=== PATIENT | female | born 1955 | race Caucasian/White ===

== ENCOUNTER → 2019-05-18 11:15 | Outpatient (CLI) | payer MEDICAID, SELFPAY | PROVIDERS: Family Provider Family Medicine; PCP Family Medicine; Referring Provider Family Medicine; Visit Provider Family Medicine | DX: R42 Dizziness and giddiness (principal); R55 Syncope and collapse | CPT/HCPCS: 93225; 93226 ==

== ENCOUNTER 2023-03-10 01:22 | Emergency (ER) | payer MEDICARE, SELFPAY ==
[2023-03-10 01:22] VITALS: BP 152/83; PULSE 81; RESP 16; O2SAT 98
[2023-03-10 01:23] VITALS: BP 168/91; PULSE 86; RESP 19; TEMP 36.3; O2SAT 98; BMI 35.7
--- NOTE | 2023-03-10 01:37 | CT_ITS ---
STUDY: CT ABDOMEN AND PELVIS WITHOUT CONTRAST REASON FOR EXAM: Female, 67 years old. Kidney Stone RADIATION DOSAGE (If Supplied By Facility): CTDIvol = ( 18.85 ) mGy, DLP = ( 975.09 ) mGycm TECHNIQUE: Transaxial images were obtained from the dome of the diaphragm to the symphysis pubis without oral contrast, and without intravenous contrast. Sagittal and coronal images were reconstructed. Individualized dose optimization techniques were used for this CT. COMPARISON: None. FINDINGS: Right middle lobe subpleural nodule measuring 6 mm. Left lower lobe subpleural nodule measuring 7.6 mm. Additional smaller nodules throughout the bilateral lower lobes noted. Mild cardiomegaly with coronary artery calcifications. There is decreased attenuation of the liver consistent with steatosis. There is high density material within the gallbladder which may indicate vicarious excretion of contrast from previous IV contrast examination, milk of calcium, sludge or tiny stones. Otherwise normal gallbladder and extrahepatic biliary system. Normal spleen. Normal pancreas. Normal bilateral adrenal glands. Normal right kidney. Mild left hydronephrosis and hydroureter with left ureter distended to the distal portion near the urinary bladder where there is a stone measuring 5.3 mm, just above the UV junction. Small hiatal hernia. The stomach is otherwise unremarkable. Normal small intestine. Increased fecal debris within the colon consistent with constipation. The appendix is visualized and appears normal. There is mild atherosclerotic calcification of the abdominal aorta, without a demonstrated aneurysm. Normal inferior vena cava. Normal retroperitoneum. Normal urinary bladder. On anteverted uterus with multiple calcifications, likely sequela of calcified uterine fibroids. Normal abdominal wall. There are diffuse degenerative changes of the visualized lumbar spine. Minimal anterolisthesis of L4 on L5 with no pars defect. Diffuse osteopenia. CT/Abdomen/Pelvis without Cont IMPRESSION: Mild left hydronephrosis due to a 5.3 mm stone just above the left UV junction. Constipation. Diffuse fatty liver. Multiple pulmonary nodules, recommend follow-up with CT chest for further characterization. Electronically Signed: Sandie Torres MD at 2:32 EST ,
--- NOTE | 2023-03-10 01:37 | ED.VIS.GI ---
HPI HPI - GI History of Present Illness Chief Complaint: Abd Pain Informant: patient Narrative Narrative: Brought in by EMS sudden left side abdominal pain waking her from sleep. Initial nausea. No vomiting. History of constipation however had bowel movement this morning. No urinary symptoms. Colonoscopy 2020. Denies abdominal surgeries in the past. No history of diverticulitis. Denies history of kidney stones however this runs in her family. Allergies to multiple antibiotics. Hypertension, diabetes, possible CKD history per patient. Prior similar symptoms: No PFSH PFSH Medical History (Updated 03/10/23 @ 02:[address] Benitez Inman, DO) Anemia Diabetes mellitus GERD (gastroesophageal reflux disease) Hyperlipidemia Hypertension Hypothyroidism Neuropathy Trigger finger of right hand Home Medications docusate sodium 100 mg capsule (DOK) 100 mg PO DAILY #20 CAPSULES 03/10/23 [Rx Last Taken Unknown] ondansetron 4 mg disintegrating tablet 4 mg PO Q8H PRN PRN Nausea #10 tabs 03/10/23 [Rx Last Taken Unknown] oxycodone-acetaminophen 5 mg-325 mg tablet 1 tab PO Q6H PRN PRN Pain 3 days #12 TABLETS 03/10/23 [Rx Last Taken Unknown] Allergy/AdvReac Type Severity Reaction Status Date / Time albuterol Allergy Intermediate Itching Verified 03/10/23 01:28 clindamycin Allergy Intermediate Upset Verified 03/10/23 01:28 Stomach doxycycline Allergy Intermediate Nausea Verified 03/10/23 01:28 lisinopril Allergy Intermediate COUGH Verified 03/10/23 01:28 Penicillins Allergy Intermediate Itching Verified 03/10/23 01:28 Sulfa (Sulfonamide Allergy Intermediate Rash Verified 03/10/23 01:28 Antibiotics) Surgical History (Updated 03/10/23 @ 02:09 by Ciera Stewart) History of hysteroscopy Social History Smoking Status: Never smoker [facility] ED Constitutional Constitutional ED: Denies chills, fever(s) or sweats Eyes Eyes: Denies change in vision ENT ENT ED: Denies dysphagia or sore throat Cardiovascular Cardiovascular: Denies chest pain, leg edema, palpitations or racing heartbeat Respiratory/Chest Respiratory/Chest: Denies cough, dyspnea or dyspnea on exertion Gastrointestinal Gastrointestinal: Reports abdominal pain and nausea; Denies diarrhea or vomiting Genitourinary Genitourinary ED: Denies dysuria, hematuria or urinary frequency Musculoskeletal Musculoskeletal: Denies back pain, extremity pain or neck pain Integumentary Denies rash or wounds Neurologic Neurologic: Denies headache(s), paresthesias or weakness EXAM Physical Exam Const Vital Signs: 03/10/23 01:23 03/10/23 01:22 03/10/23 02:52 Temperature 97.3 F L Temperature Source Temporal Pulse Rate 86 81 72 Respiratory Rate 19 H 16 16 Blood Pressure 168/91 H 152/83 H 145/79 H Blood Pressure Mean 116 106 101 Pulse Ox 98 98 99 Oxygen Delivery Method Room Air Room Air Positive well nourished and well developed Constitutional Narrative: Uncomfortable nontoxic General Appearance ED: well developed HEENT Reports moist mucous membranes normocephalic and atraumatic Eyes PERRL, EOMs intact bilaterally and conjunctivae normal General Eye ED: Yes normal appearance of both eyes Neck no lymphadenopathy and supple General: Negative for tenderness Chest Wall Chest: Negative for tenderness Resp normal respiratory effort and normal air movement Effort and Inspection: symmetric chest movement; Negative for respiratory distress Cardio regular rate, regular rhythm and no murmurs Peripheral Pulses: pulses 2+ throughout GI normal to inspection, nondistended, normoactive bowel sounds and non-tender GI Narrative: No reproducible left lower quadrant pain. Negative Mejia's McBurney tenderness. Palpation: Negative for guarding or rebound tenderness present Back/Spine no CVA tenderness and no thoracic nor lumbar tenderness Extremity normal to inspection General Extremety ED: Negative for edema or tenderness General Extremity: Negative for edema Neuro oriented x3 and no sensory deficits noted Sensorium / Orientation: awake and alert Skin no rashes or lesions noted and no wounds MDM MDM MDM Narrative Medical decision making narrative: Interventions / MDM: Differential diagnosis: Kidney stone, renal colic Diagnosis considered but do not suspect: Diverticulitis however CT negative My EKG interpretation: N/A Imaging independently reviewed and interpreted by myself: CT abdomen pelvis: 5.3 mm left UVJ stone. Also read by radiology. Multiple pulmonary nodules noted. External documents reviewed: N/A Test considered but not ordered:N/A ED course: Vital stable sudden pain left side lower abdomen. History more consistent with concerns for kidney stones. Renal stone protocol initiated. IV established with fluids Zofran morphine. Will avoid NSAIDs this time with questionable CKD history. CT scan abdomen pelvis for further evaluation. 0230: CT scan confirms stone left UVJ 5.3 mm. Labs creatinine 1.44 no old for comparison however reports likely chronic kidney disease. White count 10.3 urine had leukocytes. Culture sent. She denies dysuria or any frequency. Initial report from nursing concerns or increasing continued pain, ordered for medications however on reevaluation she is symptom-free therefore did not require any further pain control. Meds to bed provided with oxycodone Zofran and Colace for history of constipation. Urine strainer for home. She is given follow-up with urology as an outpatient. Strict return precautions developed any fevers or any symptoms not controlled with medications. Incidentally pulmonary nodules less than 1 cm are noted by radiology, she has no tobacco history. Discussed results with the patient. Further work-up as needed as an outpatient with her PCP. All questions were answered. Re-evaluation: stable Disposition discussed with patient/family/significant other: Case discussed with consulting clinician: N/A This note was generated with [email or web address] dictation software. It may contain incorrect words, spelling, and punctuation that were not noted in checking the note before signing. Lab Data Attestation: I reviewed the patient's lab results. Labs: Laboratory Results - last 24 hr 03/10/23 03/10/23 01:36 01:56 WBC 10.3 RBC 5.21 Hgb 15.1 H Hct 46.1 MCV 88.5 MCH 29.0 MCHC 32.8 RDW Std Deviation 42.8 RDW Coeff of Fidelina 13.2 Plt Count 230 MPV 11.3 Immature Gran % (Auto) 0.200 Neut % (Auto) 40.5 L Lymph % (Auto) 44.4 H [place] % (Auto) 7.8 Eos % (Auto) 5.9 H Baso % (Auto) 1.2 H Absolute Neuts (auto) 4.2 Absolute Lymphs (auto) 4.58 H Nucleated RBC % 0 Sodium 139 Potassium 4.2 Chloride 106 Carbon Dioxide 26.0 Anion Gap 7 BUN 31 H Creatinine 1.44 H Estim Creat Clear Calc 32.22 Est GFR (MDRD) Af Amer 47 L Est GFR (MDRD) Non-Af 39 L BUN/Creatinine Ratio 21.5 H Glucose 171 H Calcium 9.0 Urine Color Yellow Urine Clarity Clear Urine pH 6.5 Ur Specific [place] 1.015 Urine Protein 15 H Urine Glucose (UA) Normal Urine Ketones Negative Urine Occult Blood Negative Urine Nitrite Negative Urine Bilirubin Negative Urine Urobilinogen Normal Ur Leukocyte Esterase 500 H Urine RBC 0-5 SEEN Urine WBC 5-10 SEEN Ur Squamous Epith Cells 0 SEEN Urine Bacteria RARE Urine Mucus 0 SEEN Radiography Diagnostic Testing: Clinical Impression(s) from Imaging Studies Abdomen/Pelvis CT 03/10/23 01:37 IMPRESSION: Mild left hydronephrosis due to a 5.3 mm stone just above the left UV junction. Constipation. Diffuse fatty liver. Multiple pulmonary nodules, recommend follow-up with CT chest for further characterization. Electronically Signed: Sandie Torres MD at 2:32 EST , Discharge Plan Triage Chief Complaint: Abd Pain ED Provider: Benitez Inman Dx/Rx/DC Orders Clinical Impression: Renal insufficiency, Renal colic on left side, Kidney stone on left side, Pulmonary nodules Instructions: ED Kidney Stone w/ Colic Prescriptions: New oxycodone-acetaminophen [oxycodone-acetaminophen] 5-325 mg tablet 1 tab PO Q6H PRN PRN (Reason: Pain) 3 Days Qty: 12 0RF ondansetron [ondansetron] 4 mg tablet,disintegrating 4 mg PO Q8H PRN PRN (Reason: Nausea) Qty: 10 0RF docusate sodium [DOK] 100 mg capsule 100 mg PO DAILY Qty: 20 0RF Primary Care Provider: Solomon Chambers Referrals: Scotty Payne MD [Med Staff - Active Staff] - 3-5 Days Solomon Chambers MD [Primary Care Provider] - Activity Restrictions/Additional Instructions: 5.3 mm stone left side near the bladder. Creatinine 1.44. No old for comparison however report history of likely kidney disease. Strain your urine. Pain and nausea medicines as needed. Use stool softeners to prevent constipation. Follow-up with urology, return if you develop fevers or worsening symptoms not controlled with medications. Also CT scan notes incidental pulmonary nodules less than 1 cm in size. Further work-up and imagings through your doctor. Disposition Disposition: Home, Self Care
[2023-03-10] MEDS: Ondansetron 4 MG/2 ML Vial IV (01:43)
[2023-03-10] MEDS: Morphine 4 MG/ML Syringe IV (01:43)
[2023-03-10 01:48] LABS: Absolute Lymphocyte Count 4.58 X10^3/uL (0.83-4.51); Absolute Neutrophil Count 4.2 X10^3/uL (2.0-7.7); Basophil# 0.12 X10^3/uL; Basophil% 1.2 % (0-1); Eosinophil# 0.61 X10^3/uL; Eosinophils% 5.9 % (0-5); Hematocrit 46.1 % (37-47); Hemoglobin 15.1 g/dL (12.0-15.0); Lymphocyte # 4.58 X10^3/ul (0.83-4.51); Lymphocyte % 44.4 % (19-41); Mean Corp Hgb Conc 32.8 g/dL (32-36); Mean Corpuscular Volume 88.5 fL (81-99); Mean Platelet Vol. 11.3 fl (6.2-12.0); Monocyte% 7.8 % (0-10); NRBC Flagged by Analyzer 0 % (0-5); Neutrophil # 4.18 X10^3/uL (2.7-7.7); Neutrophil % 40.5 % (47-70); Platelet Count 230 K/mm3 (150-450); RBC Distribution Width CV 13.2 % (11.6-14.6); RBC Distribution Width SD 42.8 fl (35.1-43.9); Red Blood Count 5.21 M/mm3 (4.2-5.4); White Blood Count 10.3 K/mm3 (4.4-11.0)
[2023-03-10] MEDS: 0.9% Normal Saline (1000mL) 1,000 ML 250 ML IV (01:59)
[2023-03-10 02:01] LABS: Anion Gap 7 (5-15); BUN 31 mg/dL (7-18); BUN/Creat Ratio 21.5 RATIO (10-20); Chloride 106 mmol/L (98-107); Creatinine, Serum 1.44 mg/dL (0.55-1.02); EST Glomerular Filtration Rate 39 mL/min (>60); Est Glom Filt Rate - Afr Amer 47 mL/min (>60); Estimated Creatinine Clearance 32.22 ml/min; Glucose 171 mg/dL (74-106); Potassium 4.2 mmol/L (3.5-5.1); Sodium Level 139 mmol/L (136-145)
[2023-03-10 02:03] LABS: Mucous, Urine 0 SEEN /hpf (<or=2+); Squamous Epithelial Cells - UA 0 SEEN /hpf (5-10)
[2023-03-10 02:09] LABS: Color, Urine Yellow (Yellow); Glucose, Dipstick Normal (Normal); Ketone-Dipstick Negative (Negative); Leukocyte Esterase-Dipstick 500 /ul (Negative); Nitrite-Dipstick Negative (Negative); Occult Blood-Urine Negative /ul (Negative); Protein-Dipstick 15 mg/dl (Negative); Specific Gravity, Urine 1.015 (1.002-1.030); Urine Bilirubin Dipstick Negative (Negative); Urine Clarity Clear (Clear); Urine Urobilinogen Normal (Normal); Urine pH 6.5 (5.0 - 8.0)
[2023-03-10 02:31] LABS: Bacteria RARE /hpf (None Seen); Red Blood Cells-Urine 0-5 SEEN /hpf (0-5); White Blood Cells 5-10 SEEN /hpf (0-5)
[2023-03-10 02:52] VITALS: BP 145/79; PULSE 72; RESP 16; O2SAT 99
== END 2023-03-10 03:19 | disposition home or self-care (01) ==
PROVIDERS: Emergency Provider Emergency Medicine; PCP Family Medicine; Visit Provider Emergency Medicine
DX: N13.2 Hydronephrosis with renal and ureteral calculous obstruction (principal); E11.40 Type 2 diabetes mellitus with diabetic neuropathy, unspecified; R91.8 Other nonspecific abnormal finding of lung field
CPT/HCPCS: 74176; 80048; 81001; 85025; 87086; 87088; 96374; 96375; 99285; A4216; J2405

== ENCOUNTER → 2023-04-12 | Outpatient (CLI) | payer MEDICARE, SELFPAY ==
--- NOTE | 2023-04-12 12:07 | EKG12_ITS ---
Test Reason : PREOP Blood Pressure : / mmHG Vent. Rate : 071 BPM Atrial Rate : 071 BPM P-R Int : 198 ms QRS Dur : 080 ms QT Int : 396 ms P-R-T Axes : 027 -24 018 degrees QTc Int : 430 ms Normal sinus rhythm Normal ECG Confirmed by ELBA ALMEIDA, RACHEL ([id number]), legal editor CYRUS GABRIEL ([id number]) on 04/13/2023 6:14:56 AM Referred By: Scotty Payne Confirmed By:GISSELLE ARREOLA MD
[2023-04-12 12:50] LABS: Hematocrit 45.7 % (37-47); Hemoglobin 15.1 g/dL (12.0-15.0); Mean Corpuscular Hgb 28.8 pg (27.0-32.0); Mean Platelet Vol. 10.8 fl (6.2-12.0); Platelet Count 266 K/mm3 (150-450); RBC Distribution Width CV 13.5 % (11.6-14.6); RBC Distribution Width SD 43.1 fl (35.1-43.9); Red Blood Count 5.25 M/mm3 (4.2-5.4)
[2023-04-12 13:09] LABS: Anion Gap 7 (5-15); BUN 21 mg/dL (7-18); BUN/Creat Ratio 19.8 RATIO (10-20); Calcium,Total 8.9 mg/dL (8.5-10.1); Chloride 103 mmol/L (98-107); Creatinine, Serum 1.06 mg/dL (0.55-1.02); EST Glomerular Filtration Rate 55 mL/min (>60); Est Glom Filt Rate - Afr Amer 67 mL/min (>60); Glucose 144 mg/dL (74-106); Potassium 4.5 mmol/L (3.5-5.1); Sodium Level 139 mmol/L (136-145)
== END | disposition home or self-care (01) ==
PROVIDERS: PCP Family Medicine; Referring Provider Urology; Visit Provider Urology
DX: Z01.810 Encounter for preprocedural cardiovascular examination (principal)
CPT/HCPCS: 36415; 80048; 85027; 93005

== ENCOUNTER → 2024-06-20 | Outpatient (CLI) | payer MEDICARE, SELFPAY ==
--- NOTE | 2024-06-20 13:26 | RAD_ITS ---
PROCEDURE: ABDOMEN SINGLE VIEW REASON FOR EXAM: 1 year follow-up for kidney stones. TECHNIQUE: Single view abdomen. COMPARISON: CT abdomen and pelvis dated 03/10/2023. FINDINGS: Bowel gas pattern is normal. No evidence of bowel obstruction. No suspicious calcifications. The bones are unremarkable. RAD/Abdomen Single View IMPRESSION: Unremarkable supine abdomen. Reading Location: [facility]
== END | disposition home or self-care (01) ==
PROVIDERS: PCP Family Medicine; Referring Provider Urology; Visit Provider Urology
DX: N20.1 Calculus of ureter (principal)
CPT/HCPCS: 74018

== ENCOUNTER → 2024-11-20 | Outpatient (CLI) | payer MEDICARE, SELFPAY ==
--- NOTE | 2024-11-20 11:49 | CT_ITS ---
PROCEDURE: ABDOMEN/PELVIS WITHOUT CONT 11/20/2024 REASON FOR EXAM: GROSS HEMATURIA TECHNIQUE: ABDOMEN/PELVIS WITHOUT CONT Noncontrast technique limits evaluation of the abdominal and pelvic viscera. Coronal and Sagittal reconstruction series were provided. One or more dose reduction techniques were used (e.g., Automated exposure control, adjustment of the mA and/or kV according to patient size, use of iterative reconstruction technique). RADIATION DOSE SUMMARY: CTDlvol: 14 mGy DLP: 751 mGycm COMPARISON: 03/10/2023 FINDINGS: Multiple, bilateral noncalcified lung base nodules are redemonstrated, measuring up to 8 mm, stable, favoring benign etiology. Dependent atelectasis. Normal heart size. High density sludge and/or gallstones. Diffuse hepatic steatosis. Atrophic pancreas. Normal spleen, adrenal glands, kidneys. No hydronephrosis or ureteral stone. Normal bladder. Fibroid uterus. Normal ovaries. No retroperitoneal or pelvic adenopathy. No free air. Nonobstructed bowel. Normal appendix. Diverticulosis. No acute large bowel findings. No acute abdominal wall findings. Lumbar spine degeneration. CT/Abdomen/Pelvis without Cont IMPRESSION: No acute pathology. No acute findings. Reading Location: [facility]
== END | disposition home or self-care (01) ==
LOC: CT 11:25
PROVIDERS: PCP Family Medicine; Referring Provider Urology; Visit Provider Urology
DX: R31.0 Gross hematuria (principal); Z87.442 Personal history of urinary calculi
CPT/HCPCS: 74176